=== PATIENT | female | born 1985 | race Caucasian/White ===

== ENCOUNTER 2016-12-23 04:24 | Emergency (ER) | payer SELFPAY | END 2016-12-23 06:24 | disposition left against medical advice (07) | LOC: ER 06:15 | DX: Z53.21 Procedure and treatment not carried out due to patient leaving prior to being seen by health care provider (principal) ==

== ENCOUNTER 2017-04-22 06:31 | Emergency (ER) | payer SELFPAY ==
[~2017-04-22] VITALS: Ht 165.1 cm; Wt 74.5 kg
[2017-04-22] MEDS ORDERED: HYDROCODONE/ACETAMINOPHEN 5/325MG TABLET PO ONE (07:15)
[2017-04-22 07:42] VITALS: BP 118/74
== END 2017-04-22 08:02 | disposition home or self-care (01) ==
LOC: ER 06:52
DX: H60.92 Unspecified otitis externa, left ear (principal); F17.200 Nicotine dependence, unspecified, uncomplicated; R00.2 Palpitations; R03.0 Elevated blood-pressure reading, without diagnosis of hypertension
CPT/HCPCS: 99283

== ENCOUNTER 2017-04-23 09:58 | Emergency (ER) | payer SELFPAY ==
[~2017-04-23] VITALS: Ht 165.1 cm; Wt 74.5 kg
[2017-04-23] MEDS ORDERED: KETOROLAC 60MG/2ML VIAL IM ONE (13:30)
[2017-04-23 14:17] VITALS: BP 118/68
== END 2017-04-23 15:29 | disposition home or self-care (01) ==
LOC: ER 10:00
DX: H61.22 Impacted cerumen, left ear (principal); H60.92 Unspecified otitis externa, left ear
CPT/HCPCS: 96372; 99283; J1885; X7700; Z7610

== ENCOUNTER 2017-05-08 17:52 | Emergency (ER) | payer SELFPAY ==
[~2017-05-08] VITALS: Ht 167.6 cm; Wt 74.0 kg
[2017-05-08] MEDS ORDERED: SODIUM CHLORIDE 0.9% 1,000 ML IV ONE (18:21)
[2017-05-08 20:01] LABS: BASOPHILS % 0.8 % (0.0-2.0); EOSINOPHILS % 0.2 % (0.0-5.0); HEMATOCRIT. 33.2 % (36.0-48.0); HEMOGLOBIN. 11.3 g/dL (12.0-16.0); LYMPHOCYTES % 25.8 % (20.0-50.0); MEAN CORPUSCULAR HEMOGLOBIN 28.8 pg (28.0-32.0); MEAN CORPUSCULAR VOLUME 84.7 fL (81.0-99.0); MEAN PLATELET VOLUME 8.6 fl (7.4-10.4); MONOCYTES % 8.1 % (2.0-8.0); NEUTROPHILS % 65.1 % (40.0-76.0); PLATELET 391 x1000/uL (130-400); RED BLOOD CELL COUNT 3.92 mill/uL (4.2-5.4); RED CELL DISTRIBUTION WIDTH 14.1 % (11.6-14.6)
[2017-05-08 20:05] LABS: CHLORIDE 102 mEq/L (98-107)
[2017-05-08 20:09] LABS: D-DIMER 0.24 mg/L FEU (<0.50); INR 1.1; PROTHROMBIN TIME 11.6 sec (9.4-11.6)
[2017-05-08 20:21] LABS: CARBON DIOXIDE 25 mEq/L (21-32)
[2017-05-08 20:55] VITALS: BP 109/69
[2017-05-08 21:30] LABS: *AMPHETAMINES SCREEN URINE PRESUMTIVE POSITIVE (NEGATIVE); *BARBITURATES SCREEN URINE NEGATIVE (NEGATIVE); *BENZODIAZEPINES SCREEN URINE NEGATIVE (NEGATIVE); *COCAINE SCREEN URINE NEGATIVE (NEGATIVE); CANNABINOID URINE SCREEN PRESUMTIVE POSITIVE (NEGATIVE); METHADONE URINE SCREEN NEGATIVE (NEGATIVE); OPIATES URINE SCREEN NEGATIVE (NEGATIVE); PHENCYCLIDINE URINE SCREEN NEGATIVE (NEGATIVE)
== END 2017-05-08 22:02 | disposition home or self-care (01) ==
LOC: ER 18:08
DX: R07.9 Chest pain, unspecified (principal); R00.2 Palpitations
CPT/HCPCS: 36415; 71010; 80053; 80305; 81025; 84443; 85025; 85379; 85610; 93005; 99285; J7030

== ENCOUNTER 2017-07-01 08:15 | Emergency (ER) | payer SELFPAY ==
[~2017-07-01] VITALS: Ht 160 cm; Wt 74.0 kg
[2017-07-01 08:19] VITALS: BP 116/73
== END 2017-07-01 10:45 | disposition left against medical advice (07) ==
LOC: ER 08:23
DX: H92.02 Otalgia, left ear (principal); Z53.21 Procedure and treatment not carried out due to patient leaving prior to being seen by health care provider

== ENCOUNTER 2017-07-09 08:45 | Emergency (ER) | payer MEDICAID ==
[~2017-07-09] VITALS: Ht 167.6 cm; Wt 75.0 kg
[2017-07-09 11:07] VITALS: BP 110/72
== END 2017-07-09 11:13 | disposition home or self-care (01) ==
LOC: ER 08:47
DX: N93.8 Other specified abnormal uterine and vaginal bleeding (principal)
CPT/HCPCS: 81025; 99283

== ENCOUNTER 2018-10-12 10:17 | Emergency (ER) | payer SELFPAY ==
[~2018-10-12] VITALS: Ht 167.6 cm; Wt 95.0 kg
[2018-10-12] MEDS ORDERED: IBUPROFEN 600MG TABLET PO ONE (12:00)
[2018-10-12 12:17] VITALS: BP 142/82
== END 2018-10-12 14:22 | disposition left against medical advice (07) ==
LOC: ER 10:17
DX: S09.8XXA Other specified injuries of head, initial encounter (principal); F17.210 Nicotine dependence, cigarettes, uncomplicated; Y04.0XXA Assault by unarmed brawl or fight, initial encounter; Y93.89 Activity, other specified; Y92.018 Other place in single-family (private) house as the place of occurrence of the external cause
CPT/HCPCS: 81025; 99282

== ENCOUNTER 2019-02-01 15:41 | Emergency (ER) | payer SELFPAY ==
[~2019-02-01] VITALS: Ht 162.6 cm; Wt 91.0 kg
[2019-02-01] MEDS ORDERED: SODIUM CHLORIDE 0.9% 1,000 ML IV ONE (16:23)
[2019-02-01] MEDS ORDERED: LORAZEPAM 2MG/ML CPJ IV ONE (16:30)
[2019-02-01] MEDS ORDERED: ONDANSETRON HCL 4MG/2ML INJ IV ONE (16:45)
[2019-02-01 16:48] LABS: BASOPHILS % 0.9 % (0.0-2.0); EOSINOPHILS % 0.1 % (0.0-5.0); HEMOGLOBIN. 12.1 g/dL (12.0-16.0); LYMPHOCYTES % 20.8 % (20.0-50.0); MEAN CORPUSCULAR HEMOGLOBIN 29.7 pg (28.0-32.0); MEAN CORPUSCULAR VOLUME 85.8 fL (81.0-99.0); MONOCYTES % 4.9 % (2.0-8.0); NEUTROPHILS % 73.3 % (40.0-76.0); PLATELET 333 x1000/uL (130-400); RED BLOOD CELL COUNT 4.08 mill/uL (4.2-5.4); RED CELL DISTRIBUTION WIDTH 13.4 % (11.6-14.6)
[2019-02-01 16:53] LABS: CHLORIDE 105 mEq/L (98-107)
[2019-02-01 16:57] LABS: ETHANOL BLOOD < 10 mg/dL
[2019-02-01 16:58] LABS: HCG SCREEN NEGATIVE
[2019-02-01 17:00] LABS: CREATINE KINASE 79 IU/L (26-192)
[2019-02-01 17:04] LABS: CREATINE KINASE MB FRACTION < 1.0 ng/mL (0.5-3.6)
[2019-02-01 18:47] LABS: *BARBITURATES SCREEN URINE NEGATIVE (NEGATIVE); *BENZODIAZEPINES SCREEN URINE NEGATIVE (NEGATIVE)
[2019-02-01 18:48] LABS: *COCAINE SCREEN URINE NEGATIVE (NEGATIVE); CANNABINOID URINE SCREEN NEGATIVE (NEGATIVE); METHADONE URINE SCREEN NEGATIVE (NEGATIVE); OPIATES URINE SCREEN NEGATIVE (NEGATIVE); PHENCYCLIDINE URINE SCREEN NEGATIVE (NEGATIVE)
[2019-02-01 19:01] LABS: *AMPHETAMINES SCREEN URINE PRESUMTIVE POSITIVE (NEGATIVE)
[2019-02-01 20:51] VITALS: BP 122/74
== END 2019-02-01 20:52 | disposition home or self-care (01) ==
LOC: ER 15:41
DX: T43.621A Poisoning by amphetamines, accidental (unintentional), initial encounter (principal); R00.2 Palpitations; R06.02 Shortness of breath; R11.0 Nausea; F41.9 Anxiety disorder, unspecified; F15.188 Other stimulant abuse with other stimulant-induced disorder; Y92.89 Other specified places as the place of occurrence of the external cause
CPT/HCPCS: 36415; 71045; 80053; 80305; 80320; 82550; 82553; 83690; 83880; 84443; 84484; 84703; 85025; 93005; 96374; 96375; 99284; J2060; J2405; J7030; Z7610; G0480

== ENCOUNTER 2020-07-12 23:14 | Emergency (ER) | payer SELFPAY ==
[~2020-07-12] VITALS: Ht 162.6 cm; Wt 91.0 kg
[2020-07-12 23:30] VITALS: BP 157/93
[2020-07-13] MEDS ORDERED: ONDANSETRON HCL 4MG TABLET PO ONE
[2020-07-13 00:38] LABS: BASOPHILS % 0.4 % (0.0-2.0); EOSINOPHILS % 0.7 % (0.0-5.0); HEMATOCRIT. 34.6 % (36.0-48.0); HEMOGLOBIN. 11.2 g/dL (12.0-16.0); LYMPHOCYTES % 24.8 % (20.0-50.0); MEAN CORPUSCULAR VOLUME 83.3 fL (81.0-99.0); MEAN PLATELET VOLUME 8.9 fl (7.4-10.4); MONOCYTES % 6.9 % (2.0-8.0); NEUTROPHILS % 67.2 % (40.0-76.0); PLATELET 335 x1000/uL (130-400); RED BLOOD CELL COUNT 4.15 mill/uL (4.2-5.4); RED CELL DISTRIBUTION WIDTH 14.1 % (11.6-14.6)
[2020-07-13 00:47] LABS: PARTIAL THROMBOPLASTIN TIME 28.8 sec (23.4-31.0); PROTHROMBIN TIME 10.5 sec (9.6-11.0)
[2020-07-13 00:49] LABS: CHLORIDE 106 mEq/L (98-107)
[2020-07-13 00:55] LABS: ETHANOL BLOOD < 10 mg/dL
[2020-07-13 01:11] LABS: CLARITY URINE CLEAR (CLEAR); COLOR URINE YELLOW (YELLOW); KETONES URINE NEGATIVE (NEGATIVE); LEUKOCYTE ESTERASE URINE 1+ (NEGATIVE); NITRITE URINE NEGATIVE (NEGATIVE); OCCULT BLOOD URINE NEGATIVE (NEGATIVE); PH URINE 5.5 (4.5-8.0); PROTEIN URINE TRACE (NEGATIVE); SPECIFIC GRAVITY URINE 1.027 (1.005-1.030); UROBILINOGEN URINE 0.2 E.U./dL (0.2-1.0)
[2020-07-13 01:39] LABS: *AMPHETAMINES SCREEN URINE NEGATIVE (NEGATIVE); *BARBITURATES SCREEN URINE NEGATIVE (NEGATIVE); *BENZODIAZEPINES SCREEN URINE NEGATIVE (NEGATIVE); *COCAINE SCREEN URINE NEGATIVE (NEGATIVE); CANNABINOID URINE SCREEN NEGATIVE (NEGATIVE); METHADONE URINE SCREEN NEGATIVE (NEGATIVE); OPIATES URINE SCREEN NEGATIVE (NEGATIVE); PHENCYCLIDINE URINE SCREEN NEGATIVE (NEGATIVE)
[2020-07-13] MEDS ORDERED: POTASSIUM CHLORIDE 20MEQ TABLET SR PO NR (02:30)
== END 2020-07-13 02:55 | disposition home or self-care (01) ==
LOC: ER 23:14
DX: R51.9 Headache, unspecified (principal); R11.2 Nausea with vomiting, unspecified; F15.10 Other stimulant abuse, uncomplicated
CPT/HCPCS: 36415; 80053; 80305; 80307; 80320; 80329; 81003; 81025; 82140; 82962; 83690; 85025; 85610; 85730; 93005; 99284; Q0162; G0480

== ENCOUNTER 2022-03-17 08:47 | Emergency (ER) | payer MEDICAID ==
[~2022-03-17] VITALS: Ht 160 cm; Wt 120.0 kg
[2022-03-17 09:05] VITALS: BP 129/66
[2022-03-17] MEDS ORDERED: CETI1TAB PO (10:55)
== END 2022-03-17 11:06 | disposition home or self-care (01) ==
LOC: ER 09:27
DX: J06.9 Acute upper respiratory infection, unspecified (principal); Z20.822 Contact with and (suspected) exposure to COVID-19
CPT/HCPCS: 81025; 87426; 99283; C9803

== ENCOUNTER 2022-10-29 08:42 | Emergency (ER) | payer OTHER ==
[~2022-10-29] VITALS: Ht 160 cm; Wt 119.2 kg
[~2022-10-29 08:42] MED LIST: CETI1TAB PO
[2022-10-29 10:30] VITALS: BP 136/78
[2022-10-29] MEDS ORDERED: KETOROLAC 30MG/ML VIAL IM NR (10:30)
[2022-10-29] MEDS ORDERED: ACETAMINOPHEN 325MG TABLET PO NR (10:30)
[2022-10-29] MEDS ORDERED: IBUP-2029 MT (10:51)
== END 2022-10-29 11:04 | disposition home or self-care (01) ==
LOC: ER 08:42
DX: R51.9 Headache, unspecified (principal); F15.10 Other stimulant abuse, uncomplicated; Z98.890 Other specified postprocedural states
CPT/HCPCS: 70450; 81025; 96372; 99285; J1885

== ENCOUNTER 2022-12-24 19:46 | Emergency (ER) | payer OTHER ==
[~2022-12-24] VITALS: Ht 167.6 cm; Wt 118.3 kg
[~2022-12-24 19:46] MED LIST changes: +CEPH500T MT; +IBUP-2029 MT
[2022-12-24 20:06] VITALS: BP 128/56; PULSE 80; RESP 18; TEMP 97.9; O2SAT 100
[2022-12-24 20:34] LABS: BASOPHILS % 0.6 % (0.0-2.0); EOSINOPHILS % 0.6 % (0.0-5.0); HEMATOCRIT. 33.2 % (36.0-48.0); MEAN CORPUSCULAR HEMOGLOBIN 28.2 pg (28.0-32.0); MEAN CORPUSCULAR HGB CONC 33.2 g/dL (31.0-37.0); MEAN PLATELET VOLUME 9.1 fl (7.4-10.4); MONOCYTES % 7.9 % (2.0-8.0); NEUTROPHILS % 57.9 % (40.0-76.0); PLATELET 310 x1000/uL (130-400); RED BLOOD CELL COUNT 3.91 mill/uL (4.2-5.4); RED CELL DISTRIBUTION WIDTH 14.4 % (11.6-14.6); WHITE BLOOD COUNT 8.7 x1000/uL (4.5-11.0)
[2022-12-24 20:40] LABS: CHLORIDE 109 mEq/L (98-107); HCG SCREEN NEGATIVE; INDEX HEMOLYSI 1 (1-3); INDEX ICTERIC 1 (1-4); INDEX LIPEMIC 1 (1-3); POTASSIUM 3.5 mEq/L (3.5-5.1); SODIUM 140 mEq/L (136-145)
[2022-12-24 20:43] LABS: ALBUMIN 3.6 g/dL (3.4-5.0); CALCIUM 8.6 mg/dL (8.5-10.1); CARBON DIOXIDE 24 mEq/L (21-32); GLUCOSE 103 mg/dL (70-105); UREA NITROGEN BLOOD 15 mg/dL (7-21)
[2022-12-24 20:51] LABS: ALANINE AMINOTRANSFERASE 19 IU/L (13-61); ASPARTATE AMINOTRANSFERASE 14 IU/L (15-37); BILIRUBIN TOTAL 1.1 mg/dL (0.1-1.0); CREATININE 0.8 mg/dL (0.6-1.3); PROTEIN TOTAL 7.7 g/dL (6.0-8.3)
[2022-12-26] MEDS ORDERED: DOXY-456 MT (09:33)
[2022-12-26] MEDS ORDERED: IBUP-2029 MT (09:33)
== END 2022-12-25 01:37 | disposition left against medical advice (07) ==
LOC: ER 22:41
DX: Z53.21 Procedure and treatment not carried out due to patient leaving prior to being seen by health care provider (principal)
CPT/HCPCS: 36415; 80053; 84703; 85025; 93005; 99281

== ENCOUNTER 2022-12-26 06:41 | Emergency (ER) | payer MEDICAID, OTHER ==
[~2022-12-26] VITALS: Ht 160 cm; Wt 117.5 kg
[2022-12-26 06:48] VITALS: O2SAT 97
[2022-12-26 07:39] LABS: BASOPHILS % 0.5 % (0.0-2.0); HEMATOCRIT. 33.7 % (36.0-48.0); HEMOGLOBIN. 11.5 g/dL (12.0-16.0); LYMPHOCYTES % 30.1 % (20.0-50.0); MEAN CORPUSCULAR HEMOGLOBIN 28.9 pg (28.0-32.0); MEAN CORPUSCULAR HGB CONC 34.2 g/dL (31.0-37.0); MEAN CORPUSCULAR VOLUME 84.3 fL (81.0-99.0); MEAN PLATELET VOLUME 9.4 fl (7.4-10.4); MONOCYTES % 8.3 % (2.0-8.0); NEUTROPHILS % 60.1 % (40.0-76.0); PLATELET 299 x1000/uL (130-400); RED CELL DISTRIBUTION WIDTH 13.9 % (11.6-14.6); WHITE BLOOD COUNT 6.7 x1000/uL (4.5-11.0)
[2022-12-26 07:39] LABS: CLARITY URINE CLOUDY (CLEAR); COLOR URINE YELLOW (YELLOW); GLUCOSE URINE NEGATIVE (NEGATIVE); KETONES URINE NEGATIVE (NEGATIVE); LEUKOCYTE ESTERASE URINE TRACE (NEGATIVE); NITRITE URINE NEGATIVE (NEGATIVE); OCCULT BLOOD URINE NEGATIVE (NEGATIVE); PH URINE 5.5 (4.5-8.0); PROTEIN URINE TRACE (NEGATIVE); SPECIFIC GRAVITY URINE 1.027 (1.005-1.030); UROBILINOGEN URINE 0.2 E.U./dL (0.2-1.0)
[2022-12-26 08:02] LABS: SQUAMOUS EPITHELIAL CELL URINE 2+ /lpf (RARE/1+)
[2022-12-26 08:04] LABS: BACTERIA URINE TRACE; TRICHOMONAS URINE FEW
[2022-12-26 08:06] LABS: WBC URINE 0-2 /hpf (0-2)
[2022-12-26 08:07] LABS: RBC URINE NONE SEEN /hpf (0-2)
[2022-12-26] MEDS ORDERED: METRONIDAZOLE 500MG TABLET PO ONE (09:30)
[2022-12-26] MEDS ORDERED: IBUP-2029 MT (09:33)
[2022-12-26] MEDS ORDERED: DOXY-456 MT (09:33)
[2022-12-26 10:03] VITALS: BP 112/72; PULSE 72; RESP 18; TEMP 98.7
== END 2022-12-26 10:12 | disposition home or self-care (01) ==
LOC: ER 06:41
DX: R10.9 Unspecified abdominal pain (principal); F15.10 Other stimulant abuse, uncomplicated
CPT/HCPCS: 36415; 81003; 81025; 85025; 99283

== ENCOUNTER 2023-05-10 15:34 | Emergency (ER) | payer OTHER ==
[~2023-05-10] VITALS: Ht 160 cm; Wt 115.2 kg
[~2023-05-10 15:34] MED LIST changes: +DOXY-456 MT
[2023-05-10 15:38] VITALS: TEMP 98.2; O2SAT 100
[2023-05-10] MEDS ORDERED: IBUPROFEN 600MG TABLET PO ONE (16:15)
[2023-05-10] MEDS ORDERED: LIDOCAINE HCL/PF 1% 10 MG/ML 5ML VIAL INFIL ONE (16:15)
[2023-05-10] MEDS ORDERED: BACITRACIN ZINC OINT UDPKT TOP ONE (16:15)
[2023-05-10] MEDS ORDERED: TETANUS, DIPHTHERIA, PERTUSSIS VAC/PF 0.5ML (>10YR OLD) IM ONE (16:15)
[2023-05-10 17:00] VITALS: BP 134/50; PULSE 86; RESP 16
[2023-05-10] MEDS ORDERED: IBUP-2029 MT (17:25)
[2023-05-10] MEDS ORDERED: BO1 TP (17:25)
== END 2023-05-10 19:17 | disposition home or self-care (01) ==
LOC: ER 15:34
DX: S61.011A Laceration without foreign body of right thumb without damage to nail, initial encounter (principal); F41.9 Anxiety disorder, unspecified; F15.90 Other stimulant use, unspecified, uncomplicated; Z98.890 Other specified postprocedural states; X58.XXXA Exposure to other specified factors, initial encounter; Y93.89 Activity, other specified; Y92.89 Other specified places as the place of occurrence of the external cause; Y99.8 Other external cause status
CPT/HCPCS: 99283; 81025; 90715; 12001; J3490

== ENCOUNTER 2024-02-24 18:28 | Emergency (ER) | payer MEDICAID, OTHER ==
[~2024-02-24] VITALS: Ht 160 cm; Wt 70.0 kg
[~2024-02-24 18:28] MED LIST changes: +BO1 TP; -DOXY-456 MT; +DOXY100C74 MT
[2024-02-24 18:38] VITALS: O2SAT 97
[2024-02-24 20:32] LABS: BASOPHILS % 0.5 % (0.0-2.0); EOSINOPHILS % 0.8 % (0.0-5.0); HEMATOCRIT. 32.7 % (36.0-48.0); HEMOGLOBIN. 10.9 g/dL (12.0-16.0); LYMPHOCYTES % 28.8 % (20.0-50.0); MEAN CORPUSCULAR HGB CONC 33.3 g/dL (31.0-37.0); MEAN CORPUSCULAR VOLUME 84.1 fL (81.0-99.0); MEAN PLATELET VOLUME 8.9 fl (7.4-10.4); MONOCYTES % 6.6 % (2.0-8.0); NEUTROPHILS % 63.3 % (40.0-76.0); PLATELET 357 x1000/uL (130-400); RED CELL DISTRIBUTION WIDTH 14.4 % (11.6-14.6); WHITE BLOOD COUNT 10.3 x1000/uL (4.5-11.0)
[2024-02-24 20:35] LABS: CHLORIDE 102 mEq/L (98-107); POTASSIUM 4.2 mEq/L (3.5-5.1); SODIUM 137 mEq/L (136-145)
[2024-02-24 20:36] LABS: CALCIUM 9.5 mg/dL (8.7-10.4); CARBON DIOXIDE 30 mEq/L (21-32)
[2024-02-24 20:41] LABS: CREATININE 0.9 mg/dL (0.6-1.0); GLUCOSE 90 mg/dL (70-105); UREA NITROGEN BLOOD 15 mg/dL (9-23)
[2024-02-24 20:43] LABS: ALANINE AMINOTRANSFERASE 34 IU/L (10-49); ALBUMIN 4.4 g/dL (3.2-4.8); ASPARTATE AMINOTRANSFERASE 28 IU/L (<34); BILIRUBIN TOTAL 0.3 mg/dL (0.1-1.0); PROTEIN TOTAL 7.6 g/dL (6.0-8.3)
[2024-02-24 20:44] LABS: BILIRUBIN DIRECT < 0.1 mg/dL (<=3.0)
[2024-02-24] MEDS: ONDANSETRON 4MG ODT PO ONE (21:30)
[2024-02-24 21:31] LABS: CLARITY URINE CLOUDY (CLEAR); COLOR URINE YELLOW (YELLOW); GLUCOSE URINE NEGATIVE (NEGATIVE); KETONES URINE NEGATIVE (NEGATIVE); LEUKOCYTE ESTERASE URINE TRACE (NEGATIVE); NITRITE URINE NEGATIVE (NEGATIVE); OCCULT BLOOD URINE NEGATIVE (NEGATIVE); PH URINE 5.5 (4.5-8.0); PROTEIN URINE TRACE (NEGATIVE); SPECIFIC GRAVITY URINE 1.028 (1.005-1.030)
[2024-02-24] MEDS ORDERED: ONDA4TAB50 MT (22:22)
[2024-02-24] MEDS ORDERED: NITR-87 MT (22:22)
[2024-02-24 22:36] VITALS: BP 135/77; PULSE 68; RESP 16; TEMP 36.83628; O2SAT 97
[2024-02-24 22:42] LABS: BACTERIA URINE TRACE; RBC URINE NONE SEEN /hpf (0-2); SQUAMOUS EPITHELIAL CELL URINE 1+ /lpf (RARE/1+); WBC URINE 0-2 /hpf (0-2)
== END 2024-02-24 22:38 | disposition home or self-care (01) ==
LOC: ER 18:28
DX: R53.1 Weakness (principal); N30.00 Acute cystitis without hematuria; R11.0 Nausea; F41.9 Anxiety disorder, unspecified; F15.10 Other stimulant abuse, uncomplicated; Z79.899 Other long term (current) drug therapy
CPT/HCPCS: 99283; 80076; 80048; 81003; 81025; 83690; 85025; 36415; Q0162